=== PATIENT | male | born 1975 | race Caucasian/White ===

== ENCOUNTER 2022-07-18 11:43 | Outpatient (CLI) | payer BC | END 2022-07-18 11:44 | disposition home or self-care (01) | LOC: SCSRAD 11:43 | PROVIDERS: ATTEND Family Medicine Sports Medicine | DX: M25.511 Pain in right shoulder (principal) ==

== ENCOUNTER 2022-10-13 10:19 | Outpatient (CLI) | payer BC | END 2022-10-13 10:20 | disposition home or self-care (01) | LOC: SCSRAD 10:19 | PROVIDERS: ATTEND Family Medicine Sports Medicine | DX: M54.41 Lumbago with sciatica, right side (principal); M47.816 Spondylosis without myelopathy or radiculopathy, lumbar region; M46.06 Spinal enthesopathy, lumbar region | CPT/HCPCS: 72100 ==

== ENCOUNTER 2025-05-04 10:58 | Outpatient (CLI) | payer BC | END 2025-05-04 10:59 | disposition home or self-care (01) | LOC: SCSMRI 10:58 | PROVIDERS: ATTEND Family Medicine Sports Medicine | DX: M25.512 Pain in left shoulder (principal); M75.122 Complete rotator cuff tear or rupture of left shoulder, not specified as traumatic ==